=== PATIENT | male | born 1965 | race Caucasian/White ===

== ENCOUNTER 2017-01-27 11:34 | Emergency (ER) | payer BC ==
[~2017-01-27] VITALS: Ht 188 cm; Wt 122.0 kg
[2017-01-27 11:36] VITALS: TEMP 36.8; Ht 188 cm; Wt 122.0 kg
[2017-01-27] MEDS ORDERED: OMEP40CA41 PO (11:48)
[2017-01-27] MEDS ORDERED: LOSA50TA6 PO (11:48)
[2017-01-27] MEDS ORDERED: KETOROLAC TROMETHAMINE 30 MG/ML VIAL IV STA (12:00)
[2017-01-27] MEDS ORDERED: SODIUM CHLORIDE 0.9% 1000ML 1,000 ML IV STA (12:00)
[2017-01-27] MEDS ORDERED: ONDANSETRON INJ 2 MG/ML 2 ML VIAL IV STA (12:00)
--- NOTE | 2017-01-27 12:05 | EMERGENCY ROOM VISIT NOTE ---
History Report prepared by aMnan: Edwin Tobar Under the Supervision of: Dr. Shreyas Cruz M.D. First contact with patient: 11:39 Chief Complaint: URINARY SYMPTOMS Stated Complaint: VOMITING,BACK PAIN,URINATION PROBLEMS Nursing Triage Summary: left flank pain and increased urination and feels like he is not emptying bladder for past 2 wks History of Present Illness The patient is a 52 year old male who presents to the Emergency Room with complaints of abnormal urinary symptoms that began two weeks ago. The patient is having trouble urinating. He is experiencing hesitance and some pain with urination. He also has pelvic pain and back pain. He is having chills, diaphoresis, and episodes of vomiting. He has never had this issue before. He took Tylenol earlier today and noted that it helped his pain. He denies any other abnormal symptoms. Source of History: patient Onset: two weeks ago Position: other () Symptom Intensity: moderate Quality: other (Urinary hesitancy) Timing: constant Associated Symptoms: + chills, + diaphoresis, + vomiting, + abdominal pain, + urinary symptoms Note: He denies any other abnormal symptoms. Review of Systems See HPI for pertinent positives & negatives. A total of 10 systems reviewed and were otherwise negative. Past Medical & Surgical Medical Problems: (1) No Known Active Medical Problems Family History Patient reports no known family medical history. Social History Smoking Status: Never Smoker Smokeless Tobacco Use: No Drug Use: none Marital Status: Occupation Status: employed Current/Historical Medications Scheduled Ciprofloxacin Hcl (Cipro), 1 TAB PO BID Losartan Potassium (Cozaar), 50 MG PO QAM Omeprazole (Prilosec), 40 MG PO QAM Ondasetron Odt (Zofran Odt), 4 MG SL Q6H Tamsulosin Hcl (Flomax), 0.4 MG PO DAILY Scheduled PRN Oxycodone/Acetaminophen 5MG/325MG (Percocet 5MG/325MG), 1-2 TAB PO Q4H PRN for Pain Allergies Coded Allergies: Lisinopril (Unverified Allergy, Unknown, cough, 01/27/17) Physical Exam Vital Signs Date Time Temp Pulse Resp B/P (MAP) Pulse Ox O2 Delivery O2 Flow Rate FiO2 01/27/17 13:07 74 12 127/77 98 6/17/17 11:36 36.8 66 16 149/86 94 Room Air Physical Exam GENERAL: Patient is a healthy-appearing well-nourished male HEAD: Normocephalic atraumatic EYES: Ocular movements intact pupils equal and react to light OROPHARYNX mucous membranes are moist no exudates present no erythema or edema present NECK: Supple no nuchal rigidity CHEST: Good equal expansion LUNGS: Clear and equal to auscultation CARDIAC: Normal S1 and S2 ABDOMEN: Soft nontender no guarding BACK: No CVA tenderness EXTREMITIES: No pain upon palpation normal muscle strength in all groups no clubbing cyanosis or edema NEURO: Patient is following commands and answering questions appropriately. Alert and oriented x3 Cranial Nerves 2-12 grossly intact Medical Decision & Procedures ER Provider Diagnostic Interpretation: Radiology results as stated below per my review and radiologist interpretation: ABDOMEN AND PELVIS CT WITHOUT CONTRAST CT DOSE: 2187.02 mGy.cm HISTORY: Flank pain Pt c/o left sided flank pain TECHNIQUE: Multiaxial CT images of the abdomen and pelvis were performed without the use of intravenous and oral contrast according to the standard department stone protocol. COMPARISON STUDY: None. FINDINGS: Mild dependent bibasilar atelectasis. Fatty infiltration of liver. Scattered colonic diverticulosis. No evidence for acute diverticulitis. Mild chronic diverticulosis of the sigmoid. The appendix is normal. Right kidney is negative for calcification or hydronephrosis. Left kidney shows mild hydronephrosis. There is a 3 mm nonobstructing calcification at its mid pole several nonobstructing calcifications lower pole. There is 5 mm obstructing calculus distal left ureter several centimeters proximal to the left ureteral vesicle junction. Bladder is midline. IMPRESSION: 1. Obstructing 5 mm calculus distal left ureter. 2. Mild left hydroureteronephrosis. 3. Several additional nonobstructing left renal calcifications. 4. Chronic sigmoid diverticulosis. 5. Fatty infiltration of liver. Electronically signed by: Kermit Willett M.D. 01/27/2017 12:42 PM Dictated Date/Time: 01/27/2017 12:39 PM Laboratory Results 01/27/17 12:00 Red Blood Count 5.12, Mean Corpuscular Volume 88.5, Mean Corpuscular Hemoglobin 29.9, Mean Corpuscular Hemoglobin Concent 33.8, Mean Platelet Volume 10.1, Neutrophils (%) (Auto) 82.4, Lymphocytes (%) (Auto) 11.5, Monocytes (%) (Auto) 5.3, Eosinophils (%) (Auto) 0.2, Basophils (%) (Auto) 0.4, Neutrophils # (Auto) 6.91, Lymphocytes # (Auto) 0.96, Monocytes # (Auto) 0.44, Eosinophils # (Auto) 0.02, Basophils # (Auto) 0.03 01/27/17 12:00 Test 01/27/17 11:50 01/27/17 12:00 Urine Color DK YELLOW Urine Appearance CLEAR (CLEAR) Urine pH 6.5 (4.5-7.5) Urine Specific [place] 1.025 (1.000-1.030) Urine Protein NEG (NEG) Urine Glucose (UA) NEG (NEG) Urine Ketones TRACE (NEG) Urine Occult Blood 1+ (NEG) Urine Nitrite NEG (NEG) Urine Bilirubin NEG (NEG) Urine Urobilinogen NEG (NEG) Urine Leukocyte Esterase TRACE (NEG) Urine WBC (Auto) 5-10 /hpf (0-5) Urine RBC (Auto) 10-30 /hpf (0-4) Urine Hyaline Casts (Auto) 1-5 /lpf (0-5) Urine Epithelial Cells (Auto) 10-20 /lpf (0-5) Urine Bacteria (Auto) NEG (NEG) White Blood Count 8.38 K/uL (4.8-10.8) Red Blood Count 5.12 M/uL (4.7-6.1) Hemoglobin 15.3 g/dL (14.0-18.0) Hematocrit 45.3 % (42-52) Mean Corpuscular Volume 88.5 fL (80-100) Mean Corpuscular Hemoglobin 29.9 pg (25-34) Mean Corpuscular Hemoglobin Concent 33.8 g/dl (32-36) Platelet Count 195 K/uL (130-400) Mean Platelet Volume 10.1 fL (7.4-10.4) Neutrophils (%) (Auto) 82.4 % Lymphocytes (%) (Auto) 11.5 % Monocytes (%) (Auto) 5.3 % Eosinophils (%) (Auto) 0.2 % Basophils (%) (Auto) 0.4 % Neutrophils # (Auto) 6.91 K/uL (1.4-6.5) Lymphocytes # (Auto) 0.96 K/uL (1.2-3.4) Monocytes # (Auto) 0.44 K/uL (0.11-0.59) Eosinophils # (Auto) 0.02 K/uL (0-0.5) Basophils # (Auto) 0.03 K/uL (0-0.2) RDW Standard Deviation 40.3 fL (36.4-46.3) RDW Coefficient of Variation 12.5 % (11.5-14.5) Immature Granulocyte % (Auto) 0.2 % Immature Granulocyte # (Auto) 0.02 K/uL (0.00-0.02) Anion Gap 8.0 mmol/L (3-11) Est Creatinine Clear Calc Drug Dose 101.1 ml/min Estimated GFR () 80.7 Estimated GFR (Non- 69.6 BUN/Creatinine Ratio 10.0 (10-20) Calcium Level 8.2 mg/dl (8.5-10.1) Total Bilirubin 0.8 mg/dl (0.2-1) Direct Bilirubin 0.2 mg/dl (0-0.2) Aspartate Amino Transf (AST/SGOT) 24 U/L (15-37) Alanine Aminotransferase (ALT/SGPT) 46 U/L (12-78) Alkaline Phosphatase 68 U/L (45-117) Total Protein 7.4 gm/dl (6.4-8.2) Albumin 3.6 gm/dl (3.4-5.0) Lipase 92 U/L (73-393) Labs reviewed by ED physician. Medications Administered Medications (Trade) Dose Ordered Sig/Alexis Route Start Time Stop Time Status Last Admin Dose Admin Sodium Chloride 1,000 ml @ 999 mls/hr Q1H1M STAT IV 01/27/17 12:00 01/27/17 13:00 DC 01/27/17 12:18 999 MLS/HR Ketorolac Tromethamine (Toradol Inj) 30 mg NOW STAT IV 01/27/17 12:00 01/27/17 12:02 DC 01/27/17 12:20 30 MG Ondansetron HCl (Zofran Inj) 4 mg NOW STAT IV 01/27/17 12:00 01/27/17 12:02 DC 01/27/17 12:19 4 MG Ciprofloxacin (Cipro Tab) 500 mg NOW STAT PO 01/27/17 12:29 01/27/17 12:30 DC 01/27/17 12:45 500 MG Tamsulosin HCl (Flomax Cap) 0.4 mg NOW STAT PO 01/27/17 12:45 01/27/17 12:46 DC 01/27/17 12:55 0.4 MG ED Course 1139: Past medical records reviewed. The patient was evaluated in room C3. A complete history and physical examination was performed. 1200: Ordered Zofran Inj 4 mg IV, Toradol Inj 30 mg IV, Sodium Chloride 1000 ml @ 999 mls/hr IV 1229: Ordered Cipro Tab 500 mg PO 1245: Ordered Dilaudid Inj 1 mg IV, Flomax Cap 0.4 mg PO 1310: Upon reexamination the patient is resting. I discussed results and treatment plan with the patient. He verbalizes agreement and understanding. The patient is ready for discharge. Medical Decision Differential diagnosis: Etiologies such as appendicitis, diverticulitis, PUD, biliary pathology, UTI, pancreatitis, obstruction, mesenteric ischemia, aortic pathology, infections, inflammatory bowel disease, renal colic, as well as others were entertained. Medication Reconciliation: I attest that I have personally reviewed the patient' s current medication list Blood Pressure Screening: Patient was found to have an elevated blood pressure and was referred to their primary care doctor for recheck and further treatment This is a 52-year-old male who presents emergency department complaining of left -sided flank pain. Patient is a she pain-free upon arrival to the emergency department. Serial abdominal examinations were performed on the patient in the emergency department and no tended patient exhibit a surgical abdomen. In addition the patient has a normal white blood cell count. The patient was started on Cipro in the emergency department. He was given Toradol as well as a normal saline bolus. He does have a 5 mm stone that does appear as if it's about to pass. I encouraged to use of Flomax as well as follow-up with urology. The patient will return to the emergency department if he starts developing fevers or his pain is out of control. Patient was in agreement with the treatment plan. Impression Primary Impression: Kidney stone on left side Scribe Attestation The scribe's documentation has been prepared under my direction and personally reviewed by me in its entirety. I confirm that the note above accurately reflects all work, treatment, procedures, and medical decision making performed by me. Departure Information Dispostion Home / Self-Care Prescriptions Ciprofloxacin Hcl (CIPRO) 500 Mg Tab 1 TAB PO BID for 10 Days, #20 TAB Prov: Shreyas Cruz MD 01/27/17 Ondasetron Odt (ZOFRAN ODT) 4 Mg Tab 4 MG SL Q6H for Nausea, #6 TAB Prov: Shreyas Cruz MD 01/27/17 Tamsulosin Hcl (FLOMAX) 0.4 Mg Cap 0.4 MG PO DAILY for 10 Days, #10 CAP Prov: Shreyas Cruz MD 01/27/17 Oxycodone/Acetaminophen 5MG/325MG (PERCOCET 5MG/325MG) Tab 1-2 TAB PO Q4H Y for Pain, #14 TAB Prov: Shreyas Cruz MD 01/27/17 Referrals Andrew Moss M.D. (PCP) Forms HOME CARE DOCUMENTATION FORM, IMPORTANT VISIT INFORMATION, School Instructions, Work Instructions Patient Instructions Hypertension Control, Kidney Stones Expectant Therapy, Kidney Stones Prevent, Kidney Stones Risk, My [facility] Additional Instructions Follow up with DR Chance's office Return if you develop any fevers or pain is out of control You were found to have an elevated blood pressure today (>120 sytolic or >90 diastolic). Per medicare guidelines, you need to follow up with this blood pressure screening with your Primary Care Physician (PCP). For a new PCP call [phone]. You received narcotic or benzodiazepene medication while in the emergency room today. Do not drive, operate heavy machinery, or drink alcohol under the influence of this medication. Take 600 mg Ibuprofen every 6 hours Take Percocet for breakthrough pain Radiographs and CTs will be reread by a radiologist in the morning. Culture results are usually available in approx 48 hours You have been examined and treated today on an emergency basis only. This is not a substitute for, or an effort to provide, complete comprehensive medical care. It is impossible to recognize and treat all injuries or illnesses in a single emergency department visit. It is therefore important that you follow up closely with Dr Moss. Call as soon as possible for an appointment. Thank you for your time and consideration. I look forward to speaking with you again soon. Please don't hesitate to call us if you have any questions.
[2017-01-27 12:22] LABS: URINE APPEARANCE CLEAR (CLEAR); URINE BILIRUBIN NEG (NEG); URINE COLOR DK YELLOW; URINE NITRITE NEG (NEG); URINE PH 6.5 (4.5-7.5); URINE SPECIFIC GRAVITY 1.025 (1.000-1.030); UROBILINOGEN NEG (NEG); ZZUR CULT IF INDIC CLEAN CATCH NO
[2017-01-27 12:25] LABS: MANUAL MICROSCOPIC REQUIRED? NO; REVIEW REQ? NO
[2017-01-27] MEDS ORDERED: CIPROFLOXACIN 500 MG TAB PO STA (12:29)
[2017-01-27 12:33] LABS: BASO % 0.4 %; BASO ABS # 0.03 K/uL (0-0.2); COMPLETE YES; EOS % 0.2 %; HEMATOCRIT 45.3 % (42-52); IG% 0.2 %; LYMPH % 11.5 %; LYMPH ABS # 0.96 K/uL (1.2-3.4); MEAN CELL VOLUME 88.5 fL (80-100); MEAN CORPUSCULAR HEMOGLOBIN 29.9 pg (25-34); MEAN CORPUSCULAR HGB CONC 33.8 g/dl (32-36); MEAN PLATELET VOLUME 10.1 fL (7.4-10.4); MONO % 5.3 %; NEUT % 82.4 %; PLATELET COUNT 195 K/uL (130-400); RED BLOOD COUNT 5.12 M/uL (4.7-6.1); WHITE BLOOD COUNT 8.38 K/uL (4.8-10.8)
--- NOTE | 2017-01-27 12:43 | DIAGNOSTIC IMAGING REPORT ---
ABDOMEN AND PELVIS CT WITHOUT CONTRAST CT DOSE: 2187.02 mGy.cm HISTORY: Flank pain Pt c/o left sided flank pain TECHNIQUE: Multiaxial CT images of the abdomen and pelvis were performed without the use of intravenous and oral contrast according to the standard department stone protocol. COMPARISON STUDY: None. FINDINGS: Mild dependent bibasilar atelectasis. Fatty infiltration of liver. Scattered colonic diverticulosis. No evidence for acute diverticulitis. Mild chronic diverticulosis of the sigmoid. The appendix is normal. Right kidney is negative for calcification or hydronephrosis. Left kidney shows mild hydronephrosis. There is a 3 mm nonobstructing calcification at its mid pole several nonobstructing calcifications lower pole. There is 5 mm obstructing calculus distal left ureter several centimeters proximal to the left ureteral vesicle junction. Bladder is midline. IMPRESSION: 1. Obstructing 5 mm calculus distal left ureter. 2. Mild left hydroureteronephrosis. 3. Several additional nonobstructing left renal calcifications. 4. Chronic sigmoid diverticulosis. 5. Fatty infiltration of liver. Electronically signed by: Kermit Willett M.D. 01/27/2017 12:42 PM Dictated Date/Time: 01/27/2017 12:39 PM
[2017-01-27] MEDS ORDERED: TAMSULOSIN HCL 0.4 MG CAP PO STA (12:45)
[2017-01-27] MEDS ORDERED: HYDROmorphone INJ 1 MG/ML SYR IV STA (12:45)
[2017-01-27] MEDS ORDERED: OXYC-57 PO (12:54)
[2017-01-27] MEDS ORDERED: ONDA4TAB10 SL (12:54)
[2017-01-27] MEDS ORDERED: TAMS0.4C38 PO (12:54)
[2017-01-27] MEDS ORDERED: CIPR-255 PO (12:54)
[2017-01-27 12:55] LABS: CALCIUM 8.2 mg/dl (8.5-10.1); CREATININE 1.2 mg/dl (0.60-1.40)
[2017-01-27 13:07] VITALS: BP 127/77; PULSE 74; O2SAT 98
== END 2017-01-27 13:47 | disposition home or self-care (01) ==
LOC: C.EDB 11:35 → C.EDC 13:47
DX: N20.0 Calculus of kidney (principal); Z79.899 Other long term (current) drug therapy

== ENCOUNTER → 2017-02-14 | Outpatient (CLI) | payer BC ==
[~2017-02-14] MED LIST: CIPR-255 PO; LOSA50TA6 PO; OMEP40CA41 PO; ONDA4TAB10 SL; OXYC-57 PO
--- NOTE | 2017-02-14 15:18 | DIAGNOSTIC IMAGING REPORT ---
KUB CLINICAL HISTORY: 52 years-old Male presenting with ureteral stone. TECHNIQUE: Single supine view of the abdomen was obtained. COMPARISON: CT from 01/27/2017. FINDINGS: The previously noted obstructing distal left ureteral calculus is not definitively visualized. Stool projects over the region of the distal left ureter in the left pelvis. At this site, there is suggestion of a possible candidate calculus marked on the radiograph, however, this is not definite. Multiple hyperdense round calcifications noted in the left kidney consistent with previously demonstrated nephrolithiasis, the largest at the lower pole measuring 3 mm. An apparent hyperdensity immediately lateral to the mid portion of the left psoas muscle does not appear to follow the course of the left ureter when correlating with recent CT. This is indeterminate. No calcifications noted within the right renal collecting system. Multiple phleboliths again noted. No gross evidence of free intraperitoneal gas. Osseous structures normal. Lung bases clear. IMPRESSION: 1. Previously noted obstructing distal left ureteral calculus is not definitively visualized secondary to stool. Multiple left renal calculi again seen. Electronically signed by: Steve Stafford 02/14/2017 3:16 PM Dictated Date/Time: 02/14/2017 3:10 PM
== END | disposition home or self-care (01) ==
LOC: C.RAD 14:51
PROVIDERS: ATTEND Urology
DX: N20.2 Calculus of kidney with calculus of ureter (principal)

== ENCOUNTER → 2017-04-20 | Outpatient (CLI) | payer BC ==
[2017-04-20 14:26] LABS: BLOOD UREA NITROGEN 10 mg/dl (7-18); CALCIUM 8.5 mg/dl (8.5-10.1); CARBON DIOXIDE 28 mmol/L (21-32); CHLORIDE 106 mmol/L (98-107); CHOLESTEROL 183 mg/dl (0-200); GLUCOSE 107 mg/dl (70-99); POTASSIUM 3.8 mmol/L (3.5-5.1); SODIUM 139 mmol/L (136-145); TRIGLYCERIDES 130 mg/dl (0-150); VERY LOW DENSITY LIPOPROT CALC 26 mg/dl
[2017-04-20 14:30] LABS: CHOLESTEROL/HDL RATIO 5.1; HDL CHOLESTEROL 36 mg/dl; LDL CHOLESTEROL CALCULATED 121 mg/dl
== END | disposition home or self-care (01) ==
LOC: C.LABMFLN 06:51
PROVIDERS: ATTEND Family Medicine
DX: Z00.00 Encounter for general adult medical examination without abnormal findings (principal); Z12.11 Encounter for screening for malignant neoplasm of colon; Z13.220 Encounter for screening for lipoid disorders; E78.5 Hyperlipidemia, unspecified; I10 Essential (primary) hypertension; R73.01 Impaired fasting glucose

== ENCOUNTER → 2017-06-27 | Outpatient (CLI) | payer BC ==
--- NOTE | 2017-06-27 14:52 | DIAGNOSTIC IMAGING REPORT ---
KUB HISTORY: N20.1 Ureteric stone [id number] COMPARISON: KUB 02/14/2017. FINDINGS: The bowel gas pattern is unremarkable. There are no dilated loops of small bowel to suggest an obstruction. No right renal calculi. There are few punctate left renal calculi again noted with the largest in the lower pole measuring 3 mm. There are no ureteral calculi. Stable calcifications in the deep pelvis likely represent phleboliths. No pneumoperitoneum or pneumatosis. IMPRESSION: Stable left-sided nephrolithiasis. No ureteral calculi. Electronically signed by: Artur Cesar M.D. 06/27/2017 2:51 PM Dictated Date/Time: 06/27/2017 2:48 PM
== END | disposition home or self-care (01) ==
LOC: C.RAD 14:35
PROVIDERS: ATTEND Urology
DX: N20.1 Calculus of ureter (principal)

== ENCOUNTER → 2017-07-09 | Outpatient (CLI) | payer BC ==
--- NOTE | 2017-07-13 11:08 | CODING QUERY MEDICAL NECESSITY ---
CQSUPPORTING DIAGNOSIS NEEDED A supporting diagnosis is required for the test/procedure performed on this patient in order for us to be reimbursed by the patient's insurance. Please provide a supporting diagnosis for the following test/procedure listed below next to the test name along with your signature. *If there is no additional diagnosis for this patient that would support the following test/procedure please document that below next to the test/procedure. Test(s)/Procedure(s) that require a supporting diagnosis: DOS 07/09/17 PROSTATE SPECIFIC TEST Provider Signature: Date: Thank you Irasema Moran [employer] Information Management Once completed, please kindly fax back to [phone] For questions please call [phone]
== END | disposition home or self-care (01) ==
LOC: C.LABMFLN 11:41
PROVIDERS: ATTEND Urology
DX: N20.0 Calculus of kidney (principal)